=== PATIENT | female | born 1995 | race Caucasian/White ===

== ENCOUNTER 2017-09-16 20:52 | Emergency (ER) | payer BC ==
[2017-09-16 21:29] LABS: Bilirubin Negative (Negative); Blood, Urine Small (Negative); Glucose, Urine (Dipstick) Negative (Negative); Ketone, Urine Negative (Negative); Nitrite Negative (Negative); Protein, Urine (Dipstick) Negative (Neg-Trace); Urobilinogen 0.2 mg/dL (0.2-1.0)
[2017-09-16 21:31] LABS: Bacteria/HPF 1+ HPF (None Seen); Hyaline Casts/LPF 0-3 HYALINE CAST LPF (0-3 Hyaline); Squamous Epithelial 0-3 HPF (0-3)
[2017-09-16 21:33] LABS: #Eosinphils 0.1 thou/uL (0.0-0.7); #Lymphocytes 1.3 thou/uL (1.20-3.40); #Monocytes 0.7 thou/uL (0.11-0.59); #Neutrophils 6.1 thou/uL (1.40-6.50); %Basophils 0.5 % (0.0-1.0); %Lymphocytes 16.1 % (21.0-51.0); %Monocytes 7.9 % (0.0-10.0); Hematocrit 42.6 % (36.0-47.0); Mean Platelet Volume 7.3 fL (7.4-10.4); Red Blood Cell (RBC) Count 4.38 mill/uL (4.20-5.40); White Blood Cell (WBC) Count 8.2 thou/uL (4.8-10.8)
[2017-09-16] MEDS ORDERED: Metoclopramide HCl 10 MG/2 ML VIAL ONE (21:46)
[2017-09-16] MEDS ORDERED: diphenhydrAMINE 50 MG/ML VIAL ONE (21:46)
[2017-09-16] MEDS ORDERED: Dicyclomine 20 MG TAB ONE (21:46)
[2017-09-16 21:53] LABS: ALT (SGPT) 14 U/L (8-55); AST (SGOT) 14 U/L (5-34); Alkaline Phosphatase 66 U/L (40-150); Anion Gap 12 mmol/L (10-20); BUN (Urea Nitrogen) 14 mg/dL (7.0-18.7); Bilirubin, Total 1.7 mg/dL (0.2-1.2); Calc. Creatinine Clearance 0 mL/min (70-130); Calcium 9.2 mg/dL (7.8-10.44); Carbon Dioxide 24 mmol/L (22-29); Chloride 102 mmol/L (98-107); Estimated GFR-MDRD 81; Globulin 3.3 g/dL (2.4-3.5); Lipase 27 U/L (8-78); Protein, Total 7.5 g/dL (6.0-8.3)
--- NOTE | 2017-09-16 22:19 | ULT ---
ULTRASOUND GALLBLADDER RIGHT UPPER QUADRANT: Date: 09/16/17 HISTORY: Right upper quadrant pain. COMPARISON: None. FINDINGS: Visualized portion of the pancreas is unremarkable. Hepatic echotexture is normal. Gallbladder is nor mal. Sonographic Law's sign is negative. Common bile duct is less than 6.0 mm. The right kidney measures 10.4 x 4.2 x 4.3 cm. IMPRESSION: Normal right upper quadrant ultrasound. No cholelithiasis or cholecystitis. POS: [facility]
== END 2017-09-17 00:15 | disposition home or self-care (01) ==
LOC: ERS 20:52
DX: N39.0 Urinary tract infection, site not specified (principal); F41.9 Anxiety disorder, unspecified
CPT/HCPCS: 36415; 76705; 81003; 81015; 81025; 82248; 83690; 96365; 96366; 96375; J1200; J2765

== ENCOUNTER 2018-08-23 12:45 | Outpatient (CLI) | payer BC, OTHER | END 2018-08-23 12:46 | disposition home or self-care (01) | LOC: EEG 12:45 | PROVIDERS: ATTEND Family Medicine | DX: R56.9 Unspecified convulsions (principal) | CPT/HCPCS: 95816 ==

== ENCOUNTER 2019-11-06 10:31 | Outpatient (CLI) | payer BC ==
--- NOTE | 2019-11-06 11:57 | MRI ---
BRAIN MRI WITH AND WITHOUT CONTRAST: HISTORY: Pituitary gland disorder. COMPARISON: None. FINDINGS: Brain MRI: Hemorrhage: No parenchymal hemorrhage or extraaxial hematoma. Calvarium: Appropriate T1 marrow signal intensity. Midline brain parenchyma: Unremarkable. Cerebrum:No parenchymal mass, mass effect or midline shift. Brain volume is age appropriate. Cortical garcia-white matter differentiation is preserved. Nonspecific solitary FLAIR hyperintensity in the left frontal subcortical white matter, measuring 0.4 cm. Ventricles: No evidence of hydrocephalus. Sinuses and mastoid air cells: Adequate aeration. Diffusion: Central arterial flow is maintained. Absent restricted diffusion. Postcontrast images: No pathologic enhancement of the brain parenchyma. Pituitary MRI: There is a convexity with regards to the superior margin of the pituitary gland. There is homogeneous signal intensity on the pre and postcontrast images as well as the T2-weighted images. There does not appear to be any delayed enhancement. There is no evidence of a microadenoma. The craniocaudal di mension of the pituitary gland is less than 1 cm on the coronal and sagittal reformatted images (maximum dimension is 0.9 cm). Pituitary stalk is midline. No significant mass effect upon the optic chiasm. IMPRESSION: 1. No pathologic enhancement the brain parenchyma. 2. No evidence of a pituitary microadenoma or macroadenoma. Transcribed Date/Time: 11/06/2019 12:25 PM
[2019-11-06] MEDS ORDERED: Magnevist 469MG/ML 20 ML VIAL ONE (14:17)
== END 2019-11-06 10:32 | disposition home or self-care (01) ==
LOC: BICMRI 10:31
PROVIDERS: ATTEND Neurological Surgery
DX: E23.7 Disorder of pituitary gland, unspecified (principal)
CPT/HCPCS: 70553; A9579

== ENCOUNTER 2020-03-26 12:56 | Outpatient (CLI) | payer BC ==
--- NOTE | 2020-03-26 15:34 | RAD ---
THREE VIEWS OF THE LUMBAR SPINE 03/26/20 COMPARISON: None. HISTORY: Low back pain following an epidural catheter. FINDINGS: Neutral lateral examination demonstrates normal lumbar spine vertebral body height and alignment. No anterolisthesis or retrolisthesis is seen on neutral flexion or extension views. IMPRESSION: No acute findings. POS: [facility]
== END 2020-03-26 12:57 | disposition home or self-care (01) ==
LOC: TBSIIMAG 12:56
PROVIDERS: ATTEND Neurological Surgery
DX: M54.5 Low back pain (principal)
CPT/HCPCS: 72100

== ENCOUNTER 2020-09-09 12:14 | Day surgery (SDC) | payer BC ==
[2020-09-08 09:28] VITALS: BMI 28.0
[~2020-09-09 12:14] MED LIST: Dexamethasone 20 MG/5 ML VIAL ONE; Glycopyrrolate 0.2 MG/ML 5 ML SYRINGE ONE; Lidocaine 1% PF 5 ML VIAL ONE; Ondansetron PF 4 MG/2 ML Vial ONE; PROPOFOL 200 MG/20 ML VIAL ONE; Rocuronium Bromide 10 MG/ML (10ML VIAL) ONE
[2020-09-09] MEDS ORDERED: Ketorolac Tromethamine 30 MG/ML VIAL ONE (12:55)
[2020-09-09] MEDS ORDERED: Acetaminophen 500 MG TAB ONE (12:55)
[2020-09-09] MEDS ORDERED: Bupivacaine 0.25% HCL 30 ML VIAL ONE (14:46)
[2020-09-09] MEDS ORDERED: Lidocaine 1% w/Epinephrine 1:100K 20 ML VIAL ONE (14:46)
[2020-09-09] MEDS ORDERED: Fentanyl 100 MCG/2 ML VIAL ONE (14:54)
[2020-09-09] MEDS ORDERED: HYDROmorphone 0.5 MG/0.5 ML SYRINGE ONE (14:54)
[2020-09-09] MEDS ORDERED: Levofloxacin 500 mg/D5W 100 ml Premix Bag ONE (14:59)
[2020-09-09] MEDS ORDERED: Promethazine HCl 25 MG/ML VIAL ONE (17:18)
--- NOTE | 2020-09-10 13:56 | OP ---
DATE OF PROCEDURE: 09/09/2020 PREOPERATIVE DIAGNOSIS: Symptomatic cholelithiasis. POSTOPERATIVE DIAGNOSIS: Symptomatic cholelithiasis. OPERATION PERFORMED: Laparoscopic cholecystectomy. ANESTHESIA: General endotracheal. INDICATIONS: Patient is a 25-year-old female. She had typical symptoms of biliary colic and ultrasound proven cholelithiasis. She is taken to the operating room at this time for laparoscopic cholecystectomy. PROCEDURE IN DETAIL: Informed consent was obtained. The patient was taken to the operating room where general endotracheal anesthesia was obtained with the patient in the supine position. The abdomen was prepped with Betadine and draped in the usual sterile fashion. 0.25% Marcaine with epinephrine was infiltrated below the umbilicus and a 10 mm infraumbilical incision was created. A Veress needle was passed through this incision into the peritoneal cavity. A pneumoperitoneum was established using carbon dioxide up to a pressure of 15 mmHg. Local anesthetic was infiltrated and 3 additional 5 mm right upper quadrant incisions were created. Through the mid incision, a 5 mm port was passed into the peritoneal cavity. The camera was passed through this port and under direct vision, an 11 port was passed through the infraumbilical incision. The camera was replaced through this port, and under direct vision, 2 additional 5 mm ports were passed through the incisions already created. The gallbladder was grasped and retracted in a cephalad direction. Minimal adhesions were bluntly stripped away from the apex of the gallbladder, and the apex was retracted laterally and inferiorly. Careful dissection was carried out to the apex of the gallbladder to identify the cystic duct and cystic artery. These were each carefully dissected circumferentially. The duct was of normal caliber. Both the duct and the artery were divided between clips, leaving 2 on the side to remain within the abdomen. The gallbladder was then dissected out of the gallbladder fossa using electrocautery and removed through the infraumbilical port site. The fascia was closed with 0 Vicryl suture and a GraNee needle. The right upper quadrant was inspected and irrigated. All irrigant was aspirated. All ports and instruments were removed under direct vision. Pneumoperitoneum was carefully evacuated. Additional local anesthetic was infiltrated into each port site. The skin edges were approximated with 4-0 Monocryl subcuticular sutures, and Dermabond was placed externally. There were no complications. The patient tolerated the procedure well and was taken to the recovery room in stable condition. FINDINGS: Patient's gallbladder was without significant inflammatory change. The duct was small and noninflamed and a cholangiogram was not obtained. Blood loss was negligible. Patient tolerated the procedure well and was taken to recovery room in stable condition. Job ID: [id number]
== END 2020-09-09 18:20 ==
LOC: SDC 12:14
PROVIDERS: ATTEND Specialist
PROC: 0FT44ZZ Resection of Gallbladder, Percutaneous Endoscopic Approach (ICD-10-PCS; principal; 2020-09-09)
DX: K80.10 Calculus of gallbladder with chronic cholecystitis without obstruction (principal); Z79.899 Other long term (current) drug therapy; Z88.0 Allergy status to penicillin
CPT/HCPCS: 88304; J0690; J1100; J1170; J1885; J1956; J2405; J2550; J2704; J3010; S0020

== ENCOUNTER 2021-06-21 14:45 | Outpatient (CLI) | payer BC | END 2021-06-21 14:46 | disposition home or self-care (01) | LOC: SCSMRI 14:45 | PROVIDERS: ATTEND Specialist | DX: M51.16 Intervertebral disc disorders with radiculopathy, lumbar region (principal) | CPT/HCPCS: 72148 ==

== ENCOUNTER 2021-08-04 09:37 | Outpatient (CLI) | payer BC | END 2021-08-04 09:38 | disposition home or self-care (01) | LOC: BICMRI 09:37 | PROVIDERS: ATTEND Family Medicine | DX: E23.6 Other disorders of pituitary gland (principal) | CPT/HCPCS: 70553 ==

== ENCOUNTER 2021-08-29 15:20 | Outpatient (CLI) | payer BC | END 2021-08-29 15:21 | disposition home or self-care (01) | LOC: ULT 15:20 | PROVIDERS: ATTEND Internal Medicine Endocrinology, Diabetes & Metabolism | DX: E89.0 Postprocedural hypothyroidism (principal); E04.2 Nontoxic multinodular goiter | CPT/HCPCS: 76536 ==

== ENCOUNTER 2021-08-30 12:09 | Outpatient (CLI) | payer BC ==
[~2021-08-30 12:09] MED LIST changes: -Dexamethasone 20 MG/5 ML VIAL ONE; -Glycopyrrolate 0.2 MG/ML 5 ML SYRINGE ONE; +Iopamidol 370 76% 100 ML VIAL ONE; -Lidocaine 1% PF 5 ML VIAL ONE; -Ondansetron PF 4 MG/2 ML Vial ONE; -PROPOFOL 200 MG/20 ML VIAL ONE; -Rocuronium Bromide 10 MG/ML (10ML VIAL) ONE
== END 2021-08-30 12:10 | disposition home or self-care (01) ==
LOC: CT 12:09
PROVIDERS: ATTEND Internal Medicine Endocrinology, Diabetes & Metabolism
DX: E03.9 Hypothyroidism, unspecified (principal); E04.1 Nontoxic single thyroid nodule; R59.0 Localized enlarged lymph nodes; Z90.89 Acquired absence of other organs
CPT/HCPCS: 70491; 71260; Q9967

== ENCOUNTER 2022-03-06 11:52 | Outpatient (CLI) | payer BC | END 2022-03-06 11:53 | disposition home or self-care (01) | LOC: BICRAD 11:52 | PROVIDERS: ATTEND Nurse Practitioner Family | DX: R05.9 Cough, unspecified (principal); R06.02 Shortness of breath; R50.9 Fever, unspecified; R09.81 Nasal congestion; Z20.822 Contact with and (suspected) exposure to COVID-19 | CPT/HCPCS: 71046; U0003; U0005 ==

== ENCOUNTER 2022-07-24 11:19 | Emergency (ER) | payer BC ==
[2022-07-24 13:08] LABS: #Eosinphils 0.1 thou/uL (0.0-0.7); #Lymphocytes 1.4 thou/uL (1.20-3.40); #Monocytes 0.4 thou/uL (0.11-0.59); #Neutrophils 5.7 thou/uL (1.40-6.50); %Basophils 0.5 % (0.0-1.0); %Eosinophils 0.8 % (0.0-10.0); %Lymphocytes 18.2 % (21.0-51.0); %Monocytes 5.2 % (0.0-10.0); %Neutrophils 75.3 % (42.0-75.0); Hemoglobin 13.5 g/dL (12.0-16.0); Mean Corpuscular HGB CONC 34.2 g/dL (32.0-36.0); Mean Corpuscular Hemoglobin 33.9 pg (27.0-31.0); Mean Corpuscular Volume 99.1 fL (78.0-98.0); Mean Platelet Volume 7.8 fL (7.4-10.4); Platelet Count 224 thou/uL (130-400); RBC Distribution Width 11.5 % (11.5-14.5); Red Blood Cell (RBC) Count 3.98 mill/uL (4.20-5.40); White Blood Cell (WBC) Count 7.5 thou/uL (4.8-10.8)
[2022-07-24 13:29] LABS: ALT (SGPT) 10 U/L (8-55); AST (SGOT) 13 U/L (5-34); Albumin 4.4 g/dL (3.5-5.0); Alkaline Phosphatase 51 U/L (40-110); Anion Gap 10 mmol/L (10-20); BUN (Urea Nitrogen) 11 mg/dL (7.0-18.7); Bilirubin, Total 1.7 mg/dL (0.2-1.2); Calc. Creatinine Clearance 0 mL/min (70-130); Carbon Dioxide 24 mmol/L (22-29); Chloride 104 mmol/L (98-107); Estimated GFR 113; Globulin 3.1 g/dL (2.4-3.5); Glucose 75 mg/dL (70-105); Potassium 3.2 mmol/L (3.5-5.1); Protein, Total 7.5 g/dL (6.0-8.3); Sodium 135 mmol/L (136-145)
== END 2022-07-24 16:35 | disposition home or self-care (01) ==
LOC: ERS 11:19
DX: O99.891 Other specified diseases and conditions complicating pregnancy (principal); R10.32 Left lower quadrant pain; Z3A.12 12 weeks gestation of pregnancy
CPT/HCPCS: 36415; 76815; 80053; 85025

== ENCOUNTER 2023-06-13 13:09 | Outpatient (CLI) | payer BC | END 2023-06-13 13:10 | disposition home or self-care (01) | LOC: SCSMRI 13:09 | PROVIDERS: ATTEND Neurological Surgery | DX: D35.2 Benign neoplasm of pituitary gland (principal); R90.82 White matter disease, unspecified | CPT/HCPCS: 70553 ==